=== PATIENT | female | born 1975 | race Two or more races ===

== ENCOUNTER → 2022-02-21 | Emergency (ER) | payer MEDICAID, OTHER ==
[~2022-02-21] VITALS: Ht 170.2 cm; Wt 65.6 kg
[2022-02-21 13:07] VITALS: BP 122/54
== END | disposition left against medical advice (07) ==
LOC: EDBD 12:16 → ER 12:16
DX: N93.9 Abnormal uterine and vaginal bleeding, unspecified (principal); Z53.21 Procedure and treatment not carried out due to patient leaving prior to being seen by health care provider